=== PATIENT | female | born 1960 | race African-American/Black ===

== ENCOUNTER 2017-11-22 11:25 | Emergency (ER) | payer OTHER ==
[2017-11-22 11:40] VITALS: TEMP 98.7; BMI 28.6
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
[2017-11-22] MEDS ORDERED: SODIUM CHLORIDE 500 ML IV STA (12:23)
[2017-11-22 12:58] LABS: BASO % 0.9 % (0-2.0); EOS % 2.1 % (0-4.5); HEMATOCRIT 40.9 % (32.4-45.2); HEMOGLOBIN 13.8 GM/dL (10.7-15.3); LYMPH % 38.9 % (8-40); MCH 33.1 pg (25.7-33.7); MCHC 33.9 g/dl (32.0-36.0); MEAN CELL VOLUME 97.9 fl (80-96); MEAN PLT VOLUME 7.9 fl (7.5-11.1); MONO % 5.1 % (3.8-10.2); PLATELET COUNT 298 K/MM3 (134-434); RBC 4.18 M/mm3 (3.60-5.2); RDW 14.8 % (11.6-15.6); WHITE BLOOD COUNT 6.7 K/mm3 (4.0-10.0)
[2017-11-22] MEDS ORDERED: ACETAMINOPHEN 1000 MG/100 ML VIAL (NON FORMULARY) IVPB ONE (13:08)
[2017-11-22] MEDS ORDERED: FAMOTIDINE 20 MG/50 ML IVPB 20 MG/50 ML MG IVPB ONE ×2 (13:09→13:28)
[2017-11-22 13:20] LABS: ALBUMIN 3.6 g/dl (3.4-5.0); ANION GAP 9 MMOL/L (8-16); BILIRUBIN,TOTAL 0.2 mg/dL (0.2-1.0); BLOOD UREA NITROGEN 11 mg/dL (7-18); CALCIUM 9.3 mg/dL (8.5-10.1); CHLORIDE 103 mmol/L (98-107); CO2 30 mmol/L (21-32); CREATININE 0.7 mg/dL (0.55-1.3); GLUCOSE,RANDOM 78 mg/dL (74-106); SGPT/ALT 53 U/L (13-61); SODIUM 142 mmol/L (136-145); TOT PROT 7.9 g/dl (6.4-8.2)
[2017-11-22 13:22] LABS: ALK PHOS 125 U/L (45-117)
[2017-11-22] MEDS ORDERED: ACETAMINOPHEN INJECTION 100 ML IVPB ONE (13:28)
[2017-11-22 13:31] LABS: POTASSIUM 4.2 mmol/L (3.5-5.1)
[2017-11-22 13:32] LABS: SGOT/AST 32 U/L (15-37)
[2017-11-22] MEDS ORDERED: MAG HYDROX/AL HYDROX/SIMETH 30 ML UNIT-DOSE CUP PO ONE (13:36)
[2017-11-22] MEDS ORDERED: LIDOCAINE 5% TOPICAL PATCH TP ONE (13:49)
[2017-11-22] MEDS ORDERED: KETOROLAC TROMETHAMINE 15 MG/ML VIAL IVPUSH ONE (13:49)
[2017-11-22] MEDS ORDERED: CYCLOBENZAPRINE HCL 5 MG TABLET PO ONE (13:49)
--- NOTE | 2017-11-22 14:03 | PDOC ---
Attending Attestation - Resident Resident Name: Christopher Kaufman - ED Attending Attestation I have performed the following: I have examined & evaluated the patient, The case was reviewed & discussed with the resident, I agree w/resident's findings & plan - HPI HPI: 11/22/17 14:03 57 y/o lady with a significant past medical history of achalasia, HTN, unspecified heart murmur and asthma who presents to [facility] this afternoon c/o chest pain since morning(3 AM). Pain is described as sharp, localized under the left breast, non-radiating, and associated w/ nausea and shortness of breath. Pain is exacerbated upon deep inspiration. Pt endorses experiencing a similar event approximately 8 years ago and was admitted to [facility] to the cardiac telemetry unit. Pt does not recall what her diagnosis was at the time. - Physicial Exam PE: 11/22/17 14:06 NAD, well appearing, MMM, nl conjunctiva, anicteric; neck supple. lungs clear, + anterior and lateral left chest wall TTP, no crepitus. No skin changes. RRR, abdomen soft nontender. PRATT x4, no focal neuro deficits. No peripheral edema. normal color for ethnicity, [facility]. - Medical Decision Making 11/22/17 15:34 Debbie 57 YOF with h/o chronic back pain s/p lumbar/cervical spine surgery, GERD, achalasia, asthma, HTN, heart murmur presenting with anterior and left sided chest pain since last night 3am, +reproducible, nonradiating and nonexertional, worse with taking deep breath in and back pain. Similar presentation ~8 years ago, unremarkable workup unclear etiology. No cardiac history/syncope. Does admit to exercising/sit ups ~1 day ago.. DDx. angina, costochondritis, PE, dissection, pleurisy, msk strain. electrolyte derangements. Vital signs reviewed, wnl. Prior notes reviewed, including admissions, discharges and consultations. laboratory results and imaging reviewed, basic labs and lytes wnl. Trop neg x2. EKG normal sinus rhythm, no interval abnormalities, narrow QRS, ST and T wave segments and morphology normal. Nonspecific T wave abnormalities Interventions here include tylenol, toradol, pepcid, maalox; additional msk analgesia with lidoderm patch and flexeril, which pt also takes at baseline for back pain. On clinical reassessment, feels improved. most likely msk strain/ pain in setting of increased activity, and reproducible nature so less likely angina, aortic dissection or PE. dimer negative, reassuringly and lower likelihood of dissection/PE. Pt to be discharged in stable condition. Patient made aware of impression and plan, return precautions discussed (including but not limited to worsening pain or symptoms), fevers, or signs of infection, chest pain, respiratory distress, inability to tolerate oral intake, dehydration, syncope, or neurologic changes) . Follow up with PMD and/or specialist as recommended, follow up information provided, take medications as instructed for duration of time. continue with supportive care, avoid triggers and precipitants. All questions answered to patient's satisfaction and expressed understanding and comfort with this. 11/22/17 18:44
[2017-11-22] MEDS ORDERED: MAG HYDROX/AL HYDROX/SIMETH 30 ML UNIT-DOSE CUP ONE (14:05)
[2017-11-22] MEDS ORDERED: KETOROLAC TROMETHAMINE 15 MG/ML VIAL ONE (14:05)
[2017-11-22] MEDS ORDERED: CYCLOBENZAPRINE HCL 10 MG TABLET (FP) ONE (14:05)
[2017-11-22] MEDS ORDERED: LIDOCAINE 5% TOPICAL PATCH ONE (14:06)
[2017-11-22 18:46] VITALS: BP 128/84; PULSE 74
[2017-11-22] MEDS ORDERED: LIDOCAINE PATCH REMOVAL MC SCH (22:00)
--- NOTE | 2017-11-24 21:57 | EKG ---
Test Reason : Blood Pressure : / mmHG Vent. Rate : 070 BPM Atrial Rate : 070 BPM P-R Int : 186 ms QRS Dur : 090 ms QT Int : 462 ms P-R-T Axes : 055 012 031 degrees QTc Int : 498 ms NORMAL SINUS RHYTHM MINIMAL VOLTAGE CRITERIA FOR LVH, MAY BE NORMAL VARIANT CANNOT RULE OUT ANTERIOR INFARCT , AGE UNDETERMINED ABNORMAL ECG WHEN COMPARED WITH ECG OF 22-NOV-2017 11:47, NONSPECIFIC T WAVE ABNORMALITY, IMPROVED IN INFERIOR LEADS NONSPECIFIC T WAVE ABNORMALITY NO LONGER EVIDENT IN LATERAL LEADS Confirmed by MARKY FERNANDEZ MD ([id number]) on 11/24/2017 9:57:13 PM Referred By: Confirmed By:MARKY FERNANDEZ MD
--- NOTE | 2017-11-24 22:04 | EKG ---
Test Reason : Blood Pressure : / mmHG Vent. Rate : 086 BPM Atrial Rate : 086 BPM P-R Int : 170 ms QRS Dur : 082 ms QT Int : 402 ms P-R-T Axes : 041 009 037 degrees QTc Int : 481 ms NORMAL SINUS RHYTHM POSSIBLE LEFT ATRIAL ENLARGEMENT LEFT VENTRICULAR HYPERTROPHY NONSPECIFIC T WAVE ABNORMALITY PROLONGED QT ABNORMAL ECG WHEN COMPARED WITH ECG OF 08-JUL-2009 08:50, PREMATURE VENTRICULAR COMPLEXES ARE NO LONGER PRESENT ST NO LONGER ELEVATED IN ANTERIOR LEADS NONSPECIFIC T WAVE ABNORMALITY, WORSE IN INFERIOR LEADS NONSPECIFIC T WAVE ABNORMALITY NOW EVIDENT IN LATERAL LEADS Confirmed by MARKY FERNANDEZ MD ([id number]) on 11/24/2017 10:03:50 PM Referred By: Confirmed By:MARKY FERNANDEZ MD
== END 2017-11-22 18:47 | disposition home or self-care (01) ==
LOC: JER 11:25
PROC: 3E033NZ Introduction of Analgesics, Hypnotics, Sedatives into Peripheral Vein, Percutaneous Approach (ICD-10-PCS; principal; 2017-11-22)
PROC: 3E033GC Introduction of Other Therapeutic Substance into Peripheral Vein, Percutaneous Approach (ICD-10-PCS; 2017-11-22)
PROC: 3E0337Z Introduction of Electrolytic and Water Balance Substance into Peripheral Vein, Percutaneous Approach (ICD-10-PCS; 2017-11-22)
DX: R07.9 Chest pain, unspecified (principal); Z87.891 Personal history of nicotine dependence; I10 Essential (primary) hypertension; R01.1 Cardiac murmur, unspecified; K22.0 Achalasia of cardia
CPT/HCPCS: 36415; 71046-TC-FY; 80053; 84484; 85025; 85379; 93005; 93010; 96361; 96365; 96375; 99285-25; J0131